=== PATIENT | female | born 2000 ===

== ENCOUNTER 2022-06-05 09:45 | Outpatient (RCR) | payer BC, SELFPAY ==
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
[2022-05-22 11:12] VITALS: BMI 25.8
[2022-05-22 13:00] LABS: Amphetamine Screen Urine Not Detected (Not Detect); Barbiturates, Urine Not Detected (Not Detect); Benzodiazepines Screen Urine Not Detected (Not Detect); Cannabinoid Screen Urine POSITIVE (Not Detect); Cocaine Screen Urine Not Detected (Not Detect); Fentanyl, urine Not Detected (Not Detect); Opiate Screen Urine Not Detected (Not Detect); Phencyclidine Screen Urine Not Detected (Not Detect)
--- NOTE | 2022-05-22 15:11 | PC.NURSE ---
Case opened in treatment team.
[2022-05-22 15:26] VITALS: BP 102/60; PULSE 80; TEMP 36.4
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
--- NOTE | 2022-05-26 12:44 | PC.NURSE ---
I met with pt and reviewed treatment plan, schedule, and aftercare. Pt reports feeling good in the program and said she feels she is benefiting from processing issues and learning coping skills. She reports a decrease in skin picking.
--- NOTE | 2022-05-28 10:21 | P.PNPSP_ITS ---
Subjective Subjective Date of Service: 05/28/22 Reason For Visit: ADHD,sensory perception d/o Medical Problems Affecting Mental Status: No Interim History: Describes mood as ?overall okay ?. Continues with some anxiety. No SI/HI. Continues with skin picking, but on body, has mostly stopped picking face. Finding trazodone 25 mg over sedating, has been cutting tablet in half taking 12.5 mg. Stopped taking hydroxyzine, concerned about side effects and potential for cardiac issues. Utilizing THC at night for anxiety/sleep. Medication Compliance: Yes Side effects from medications: No Attending Groups: Yes Review of Systems Acute medical concerns: No Medical Review of Systems: unchanged Review of Systems Review of Systems Yes all other systems are reviewed and are negative Constitutional: Reports no additional constitutional complaints Mental Status Exam Mental Status Exam Narrative: NAD. No abnormal movements, no tics or tremors. Normal ambulation. Patient Appearance: Well Grooomed and Appropriate Patient Orientation: Person, Place, Time and Situation Level of Consciousness: Appropriate Patient Behavior: Appropriate, Cooperative and Good Eye Contact Mood Description: Anxious Affect Description: Anxious Patient Cognition Impaired: No Ability to Follow Directions: Good Speech Pattern: Clear, Appropriate and Coherent Memory Description: Intact Hallucinations: None Delusions: Not Present Thought Process: Intact Thought Content: positive for Intact and positive for Obsessional Thoughts (Continues with skin picking.) Depressive Symptoms: Increased Anxiety, Difficulty Sleeping and Loss of Energy Judgement: Fair Diagnostics Vital Signs (24Hr): BMI result Body Mass Index 25.8 Assessment & Plan Assessment & Plan (1) Major depressive disorder, recurrent severe without psychotic features: Status: Acute Code(s): F33.2 - Major depressive disorder, recurrent severe without psychotic features (2) Generalized anxiety disorder: Status: Acute Code(s): F41.1 - Generalized anxiety disorder (3) Excoriation (skin-picking) disorder: Status: Acute Code(s): F42.4 - Excoriation (skin-picking) disorder (4) Attention-deficit hyperactivity disorder, unspecified type: Status: Acute Code(s): F90.9 - Attention-deficit hyperactivity disorder, unspecified type Plan Describes mood as ?overall okay ?. Continues with some anxiety. No SI/HI. Continues with skin picking, but on body, has mostly stopped picking face. Finding trazodone 25 mg over sedating, has been cutting tablet in half taking 12.5 mg. Stopped taking hydroxyzine, concerned about side effects and potential for cardiac issues. Utilizing THC at night for anxiety/sleep. Discussed side of THC, complications from use. Reminded patient to refrain from use while participating in PHP. Patient has experienced hyperemesis in the past r/t THC. 1. Continue with current PHP plan of care. 2. Continue with current medications as prescribed, except for DC id hydroxyzine, lowered trazodone dose to 12.5 mg. 3. Follow-up as per protocol. Patient educated on: diagnosis, medication risk/benefits and therapeutic strategies Informed Consent: understands Reason for contiued partial hosp. stay Substantial Risk for: inability to function, rapid decompensation and med/psych decompensation Certification I certify that partial hospital treatment is medically necessary due to the symptoms and problems resulting from the patient's mental illness and the failure to treat the patient at the partial hospital level of care would likely result in the patient requiring inpatient psychiatric care which could not be prevented at a less intensive level of care. I spent minutes with the patient and/or on the patient floor today, greater than?50% of which was spent counseling/coordinating care. Discharge Plan Discharge Attending provider: Gilbert Mosher Medications: New trazodone 50 mg tablet 25 mg PO BEDTIME PRN (Reason: sleep) Qty: 7 0RF No Action Fiasp FlexTouch U-100 Insulin 100 unit/mL (3 mL) Insulin Pen 1 sliding scale dose SUBCUT USEASDIRECTD Rx Instructions: Up to 45 units a day as directed. insulin glargine [Basaglar KwikPen U-100 Insulin] 100 unit/mL (3 mL) Insulin Pen 33 unit SUBCUT QPM Label Comments: Patient stated she has been out of Basaglar for one week. Patient and I called her prescriber's office at [facility] and asked for a refill to be sent to patient's pharmacy. buspirone [BuSpar] 5 mg Tablet 7.5 mg PO BID spironolactone 25 mg Tablet 25 mg PO BID hydroxyzine pamoate 25 mg Capsule 25 mg PO DAILY PRN (Reason: Anxiety) sertraline 200 mg Capsule 200 mg PO DAILY norethindrone ac-eth estradiol 1-20 mg-mcg tablet 1 tab PO DAILY
--- NOTE | 2022-06-03 13:53 | PC.NURSE ---
Pt called in the morning before the treatment day. 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 She said mother has consistently disregarded her requests to hide cannabis and paraphernalia from her so as not to trigger her, and she is now staying with her father for a while. We spoke about a referral to an IOP program and pt agreed that this would be better for her as long as it's in-person and not online. I called [facility] and was told that they are still online, but that [facility]'s IOP is in person. I called [facility] and spoke with Zayda , who emailed me an referral form. I had pt fill out a release of information, completed the referral from and emailed it back to [facility]. Zayda said they will call me with intake appointment time and date.
--- NOTE | 2022-06-04 16:06 | HO.PHPPROGNO ---
Subjective Subjective Date of Service: 06/04/22 Reason For Visit: ADHD,sensory perception d/o Medical Problems Affecting Mental Status: No Interim History: Patient feels overall improved mood. Reports she feels psychiatrically stable for discharge from [facility]. Plans to attend program for substance use, as she wishes to stop using cannabis. No SI/HI, no safety concerns. Requests refill for trazodone. Medication Compliance: Yes Side effects from medications: No Attending Groups: Yes Review of Systems Acute medical concerns: No Medical Review of Systems: unchanged Review of Systems Review of Systems Yes all other systems are reviewed and are negative Constitutional: Reports no additional constitutional complaints Mental Status Exam Mental Status Exam Narrative: NAD. No abnormal movements, no tics or tremors. Normal ambulation. Patient Appearance: Well Grooomed and Appropriate Patient Orientation: Person, Place, Time and Situation Level of Consciousness: Appropriate Patient Behavior: Appropriate, Cooperative and Good Eye Contact Mood Description: Appropriate Affect Description: Appropriate Patient Cognition Impaired: No Ability to Follow Directions: Excellent Speech Pattern: Clear, Appropriate and Coherent Memory Description: Intact Hallucinations: None Delusions: Not Present Thought Process: Intact Thought Content: positive for Intact Depressive Symptoms: Difficulty Sleeping (Reports improvement with trazodone 25 mg, continues to wake up early approximately 4-5 a.m.) Judgement: Good Diagnostics Vital Signs (24Hr): BMI result Body Mass Index 25.8 Assessment & Plan Assessment & Plan (1) Major depressive disorder, recurrent severe without psychotic features: Status: Acute Code(s): F33.2 - Major depressive disorder, recurrent severe without psychotic features Assessment and Plan: Patient feels overall improved mood. Reports that current psychiatric medication regimen is working well. Reports she feels psychiatrically stable for discharge from [facility]. Plans to attend program for substance use, as she wishes to stop using cannabis. Reports that while in this program focusing on depression and anxiety, she has come to realize that she self medicates with cannabis, and that this has become a problem for her. Plans to go to substance focused IOP from here. No SI/HI, no safety concerns. Requests refill for trazodone. States that 25 mg is helping her to sleep, although she does wake up early approximately 4-5 a.m.. Prefers to keep the dose low at 25 mg. (2) Generalized anxiety disorder: Status: Acute Code(s): F41.1 - Generalized anxiety disorder Plan 1. Patient appears stable for discharge from [facility] this week. 2. Trazodone 25 mg daily, 1 month supply sent to pharmacy. 3. Patient to follow-up with outpatient providers going forward. Patient educated on: diagnosis, medication risk/benefits, substance abuse and therapeutic strategies Informed Consent: understands Reason for contiued partial hosp. stay Substantial Risk for: stable for discharge Certification I certify that partial hospital treatment is medically necessary due to the symptoms and problems resulting from the patient's mental illness and the failure to treat the patient at the partial hospital level of care would likely result in the patient requiring inpatient psychiatric care which could not be prevented at a less intensive level of care. I spent minutes with the patient and/or on the patient floor today, greater than?50% of which was spent counseling/coordinating care. Discharge Plan Discharge Attending provider: Gilbert Mosher Medications: New trazodone 50 mg tablet 25 mg PO DAILY Qty: 15 0RF Discontinued hydroxyzine pamoate 25 mg Capsule 25 mg PO DAILY PRN (Reason: Anxiety) No Action Fiasp FlexTouch U-100 Insulin 100 unit/mL (3 mL) Insulin Pen 1 sliding scale dose SUBCUT USEASDIRECTD Rx Instructions: Up to 45 units a day as directed. insulin glargine [Basaglar KwikPen U-100 Insulin] 100 unit/mL (3 mL) Insulin Pen 33 unit SUBCUT QPM Label Comments: Patient stated she has been out of Basaglar for one week. Patient and I called her prescriber's office at [facility] and asked for a refill to be sent to patient's pharmacy. buspirone [BuSpar] 5 mg Tablet 7.5 mg PO BID spironolactone 25 mg Tablet 25 mg PO BID sertraline 200 mg Capsule 200 mg PO DAILY norethindrone ac-eth estradiol 1-20 mg-mcg tablet 1 tab PO DAILY
--- NOTE | 2022-06-05 16:11 | PC.NURSE ---
Patient was scheduled for routine discharge today. Patient reports feeling anxious about discharge however feeling ready. Denied SI or thoughts to harm herself. Reviewed patient medications with patient. Patient reports taking medications as prescribed. Written information given to patient about depression and patient has the crisis number if needed.
--- NOTE | 2022-06-06 15:47 | PC.NURSE ---
I called and spoke to pt's therapist, Demetria Simpson from [facility]. Discussed pt's discharge today, and her referral to [facility] for cannabis use. Discussed pt's clinical presentation at discharge.
== END 2022-06-05 23:59 | disposition home or self-care (01) ==
LOC: HO.PHPA 09:45
PROVIDERS: Visit Provider Psychiatry & Neurology Psychiatry
DX: F33.2 Major depressive disorder, recurrent severe without psychotic features (principal); F41.1 Generalized anxiety disorder; F42.4 Excoriation (skin-picking) disorder; F90.9 Attention-deficit hyperactivity disorder, unspecified type; Z79.899 Other long term (current) drug therapy
CPT/HCPCS: 80307; 90791; 90853

== ENCOUNTER 2023-09-07 12:45 | Outpatient (AMB) | payer BC, SELFPAY ==
[2023-09-07 13:04] VITALS: BP 122/78; PULSE 78; TEMP 36.6; O2SAT 98
--- NOTE | 2023-09-07 13:04 | AM.OFFWIN_ITS ---
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 Intake Note: pt is here for c/o uti Patient Tobacco Use Status: Never used Tobacco Allergies gluten Allergy (Verified 09/07/23 13:04) Gastrointestinal Upset mold Allergy (Mild, Uncoded 05/22/22 09:57) cold symptoms Medication List - Last Reconciled 09/07/23 by Pedro Reese MD buspirone 7.5 mg PO BID insulin aspart (niacinamide) 100 unit/mL (3 mL) (Fiasp FlexTouch U-100 Insulin) 1 sliding scale dose subcut USEASDIRECTD insulin glargine (Basaglar KwikPen U-100 Insulin) 33 units subcut QPM norethindrone ac-eth estradiol 1-20 mg-mcg 1 tab PO DAILY sertraline 200 mg PO DAILY spironolactone 25 mg PO BID trazodone 25 mg (1/2 x 50 mg) PO DAILY Do you need a note to return to daycare/school/sports/work: Yes 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 Reports symptoms of increased frequency of urination, burning on urination and discomfort in the suprapubic area. Symptoms started in the past few days. No fevers or chills. No nausea or vomiting. PFSH Medical History Exercise-induced asthma Type II diabetes mellitus Celiac disease Surgical History Hx of cholecystectomy Social History Household Members: Family Patient Tobacco Use Status: Never used Tobacco Physical Exam Vital Signs: Last Vital Signs Temp 97.8 F 09/07/23 13:04 Pulse 78 09/07/23 13:04 BP 122/78 09/07/23 13:04 Pulse Ox 98 09/07/23 13:04 Oxygen Delivery Method Room Air 09/07/23 13:04 Const General: cooperative and healthy appearing Nutritional Appearance: well nourished Orientation/consciousness: patient oriented x3 Limitations: no limitations HEENT Head: Yes normal to inspection Eyes General: appearance normal, both eyes and all related structures Neck Neck: Yes normal visual inspection Chest Chest palpation & inspection: normal palpation of entire chest wall Resp Effort & Inspection: normal respiratory effort General: Yes bladder normal to inspection and Yes no CVA tenderness Back/Spine/Pelvis Back: no CVA tenderness Neuro General: patient oriented x3 Results AMB Urinalysis, Automated UA Leukoctes 0 Pino/uL Last Edit by Michael Valladares CMA on 09/07/23 13:07 UA Nitrite Negative Last Edit by Michael Valladares CMA on 09/07/23 13:07 UA Urobilinogen 0.2 mg/dL Last Edit by Michael Valladares CMA on 09/07/23 13 :07 UA Protein 0 mg/dL Last Edit by Michael Valladares CMA on 09/07/23 13:07 UA pH 8.0 Last Edit by Michael Valladares CMA on 09/07/23 13:07 UA Blood 0 Joby/uL Last Edit by Michael Valladares CMA on 09/07/23 13:07 UA Specific [place] 1.010 Last Edit by Michael Valladares CMA on 09/07/23 13:07 UA Ketone Negative Last Edit by Michael Valladares CMA on 09/07/23 13:07 UA Bilirubin 0 mg/dL Last Edit by Michael Valladares CMA on 09/07/23 13:07 UA Glucose 0 mg/dL Last Edit by Michael Valladares CMA on 09/07/23 13:07 Results Reviewed Results Reviewed: Laboratory Last Values Urine pH (Auto) 8.0 09/07/23 13:06 Specific [place] (Auto) 1.010 09/07/23 13:06 Urine Protein (Auto) 0 mg/dL 09/07/23 13:06 Glucose (UA)(Auto) 0 mg/dL 09/07/23 13:06 Urine Ketones (Auto) Negative 09/07/23 13:06 Urine Blood (Auto) 0 Joby/uL 09/07/23 13:06 Urine Nitrite (Auto) Negative 09/07/23 13:06 Urine Bilirubin (Auto) 0 mg/dL 09/07/23 13:06 Urine Urobilinogen (Auto) 0.2 mg/dL 09/07/23 13:06 Leukocyte Esterase (Auto) 0 Pino/uL 09/07/23 13:06 Assessment & Plan Assessment & Plan (1) Urinary tract infection: Code(s): N39.0 - Urinary tract infection, site not specified Plan: Take antibiotics and Pyridium as directed. Increase fluid intake. If symptoms of burning persist, new onset of fever or lower back pain, to follow-up at the clinic. Orders: Orders AMB Urinalysis Automated Today Z13.9 - Encounter for screening, unspecified Coding Level of Care Code Est Pt Level 3 (68569) Diagnoses Urinary tract infection N39.0
== END 2023-09-07 13:19 | disposition home or self-care (01) ==
PROVIDERS: PCP Internal Medicine; Visit Provider Internal Medicine
DX: Z13.9 Encounter for screening, unspecified (principal); N39.0 Urinary tract infection, site not specified
CPT/HCPCS: 81003; 99213